=== PATIENT | male | born 1960 | race Caucasian/White ===

== ENCOUNTER → 2021-10-16 10:41 | Outpatient (BNVA) | payer OTHER, SELFPAY | PROVIDERS: PCP Internal Medicine; Visit Provider Surgery | DX: Z12.11 Encounter for screening for malignant neoplasm of colon (principal); Z86.010 Personal history of colon polyps; Z87.19 Personal history of other diseases of the digestive system | CPT/HCPCS: 99203 ==

== ENCOUNTER 2021-12-30 08:26 | Day surgery (SDC) | payer OTHER, SELFPAY ==
[2021-12-28 11:08] VITALS: BMI 31.8
[2021-12-30 09:18] VITALS: BP 152/99; PULSE 68; RESP 18; TEMP 36.3; O2SAT 95
[2021-12-30] MEDS: sodium chloride 0.9% 1,000 ML 30 ML IV (09:39)
--- NOTE | 2021-12-30 09:53 | ANES.PREANE2 ---
Pre-Anesthetic Assessment Height/Weight: Height 1.83 m Weight 106.594 kg Temp Pulse Resp BP Pulse Ox O2 Del Method 97.4 F L 68 18 152/99 95 12/30/21 09:18 12/30/21 09:18 12/30/21 09:18 12/30/21 09:18 12/30/21 09:18 12/30/21 09:18 Preop Diagnosis: Hx of GI bleed Operation Date: 12/30/21 10:00 Proposed Procedures p Colonoscopy 35050,Z12.11,Z86.010,Z87.19(Not Applicable) - Shane Garrison DO Familial anesthetic complications: None Was Beta Heri taken within 24 hours: N/A Was Clonidine taken within 24 hours: N/A Last intake: Intake Last Liquid Date 12/29/21 Last Liquid Time 23:30 Last Solid Date 12/28/21 Last Solid Time 19:00 Social No alcohol and No tobacco Exam alert, oriented x 3, clear to auscultation bilaterally and regular rate & rhythm Airway Submandibular: within normal limits Cervical ROM: within normal limits Mallampati: Class II Dentition: full History/ROS No significant complaints Pulmonary Sleep Apnea (No CPAP use ) CV/HEM Hypertension None reported Hepatic None reported GI Gastroesophageal Reflux Disease (Poorly controlled ) Metabolic Diabetes Mellitus and Hyperlipidemia [facility] [place] None reported Neuropsych None reported Anesthetic Plan ASA status: 2 Anesthesia: Anesthesia Evaluation, General and MAC Other: I discussed with the patient risks, goals, and benefits of MAC and general anesthesia. We discussed spectrum of MAC anesthesia including conversion to general as well as possibility of recall of intraoperative stimuli including discomfort/pain. Patient agrees to proceed with MAC. Risk of > 500 ml blood loss (7ml/kg in children): No Medications/Allergies Home Medications Medication Instructions Recorded Confirmed Last Taken Type alogliptin 25 mg tablet 25 mg PO DAILY 10/16/21 12/28/21 12/29/21 History empagliflozin 25 mg tablet 25 mg PO .1/2 tab daily 10/16/21 12/28/21 12/29/21 History glipizide 10 mg tablet 10 mg PO BID 10/16/21 12/28/21 12/29/21 History lisinopril 20 mg tablet 20 mg PO ONCE 10/16/21 12/28/21 12/29/21 History oxycodone 5 mg tablet 5 mg PO .5-6x daily PRN Pain 10/16/21 12/28/21 12/29/21 History polyethylene glycol 3350 17 4 g PO DAILY PRN con 10/16/21 12/28/21 12/29/21 History gram/dose oral powder tizanidine 4 mg tablet 4 mg PO BID PRN Muscle Spasm 10/16/21 12/28/21 12/29/21 History Allergies Allergy/AdvReac Type Severity Reaction Status Date / Time gabapentin [From Neurontin] Allergy loop Verified 12/30/21 09:13 swelling Current Medications Generic Name Dose Route Start Last Admin Trade Name Freq PRN Reason Stop Dose Admin Sodium Chloride 1,000 mls @ 30 mls/hr 12/30/21 08:30 12/30/21 09:39 Sodium Chloride 0.9% IV 12/31/21 08:29 30 mls/hr .Q24H NITA Administration PFSH Anesthesia Medical History Diabetes History of colon polyps History of rectal bleeding Surgical History History of esophagogastroduodenoscopy (EGD) Years ago History of surgery on wrist Hx of colonoscopy 5 yrs ago Hx of shoulder surgery bilateral Family History Father Diabetes Social History Smoking and tobacco status: never smoked Data Anesthesia Cardiac Studies: No Data to Display
--- NOTE | 2021-12-30 09:55 | P.HP_ITS ---
Providers/Chief Complaint Primary Care Provider: KANG MARTINEZ MD [place] Chief Complaint: History of colon polyps History of Present Illness Murali Skinner is a 61 year old male with a history of colon polyps that is here for a screening colonoscopy Medications/Allergies Home Medications Medication Instructions Recorded Confirmed Last Taken Type alogliptin 25 mg tablet 25 mg PO DAILY 10/16/21 12/28/21 12/29/21 History empagliflozin 25 mg tablet 25 mg PO .1/2 tab daily 10/16/21 12/28/21 12/29/21 History glipizide 10 mg tablet 10 mg PO BID 10/16/21 12/28/21 12/29/21 History lisinopril 20 mg tablet 20 mg PO ONCE 10/16/21 12/28/21 12/29/21 History oxycodone 5 mg tablet 5 mg PO .5-6x daily PRN Pain 10/16/21 12/28/21 12/29/21 History polyethylene glycol 3350 17 4 g PO DAILY PRN con 10/16/21 12/28/21 12/29/21 History gram/dose oral powder tizanidine 4 mg tablet 4 mg PO BID PRN Muscle Spasm 10/16/21 12/28/21 12/29/21 History Allergies Allergy/AdvReac Type Severity Reaction Status Date / Time gabapentin [From Neurontin] Allergy loop Verified 12/30/21 09:13 swelling PFSH Acute PFSH: Medical History Diabetes History of colon polyps History of rectal bleeding Surgical History History of esophagogastroduodenoscopy (EGD) Years ago History of surgery on wrist Hx of colonoscopy 5 yrs ago Hx of shoulder surgery bilateral Family History Father Diabetes Social History Smoking and tobacco status: never smoked Vitals/I&O/Wt Last Vital Signs Temp 97.4 F L 12/30/21 09:18 Pulse 68 12/30/21 09:18 Resp 18 12/30/21 09:18 BP 152/99 12/30/21 09:18 Pulse Ox 95 12/30/21 09:18 O2 Del Method 12/30/21 09:18 Weight last 48 hrs Weight 235 lb A&P Assessment and plan (1) History of colon polyps: Status: Acute Plan Colonoscopy Attestations Medical Necessity Statement*: Home Coding Level of Care Code Acute E [employer] for [facility] Diagnoses History of colon polyps Z86.010
[2021-12-30 10:45] VITALS: BP 116/70; PULSE 54; RESP 16; TEMP 36.2; O2SAT 95
[2021-12-30 10:55] VITALS: BP 115/72; PULSE 53; RESP 16; O2SAT 93
--- NOTE | 2021-12-30 13:57 | ANE.PACU2 ---
Inpatient post-anesthesia follow up: Airway intact: Yes Vital signs: Temperature 97.2 F Pulse Rate 53 Respiratory Rate 16 Blood Pressure 115/72 Pulse Oximetry 93 Oxygen Delivery Me thod Nasal Cannula Oxygen Flow Rate 5 Fraction of Inspir ed Oxygen Hydration adequate: Yes Nausea and vomiting: No Pain level: 1 Mental status: Baseline
== END 2021-12-30 11:14 | disposition home or self-care (01) ==
PROVIDERS: PCP Internal Medicine; Visit Provider Surgery
PROC: 0DJD8ZZ Inspection of Lower Intestinal Tract, Via Natural or Artificial Opening Endoscopic (ICD-10-PCS; CPT 45378; principal; 2021-12-30 10:00)
DX: Z12.11 Encounter for screening for malignant neoplasm of colon (principal); Z86.010 Personal history of colon polyps; E11.9 Type 2 diabetes mellitus without complications; K57.30 Diverticulosis of large intestine without perforation or abscess without bleeding; Z87.19 Personal history of other diseases of the digestive system; G47.30 Sleep apnea, unspecified; K21.9 Gastro-esophageal reflux disease without esophagitis; E78.5 Hyperlipidemia, unspecified
CPT/HCPCS: 45378; J2704; J7030